=== PATIENT | female | born 1955 | race Caucasian/White ===

== ENCOUNTER 2023-01-03 10:22 | Emergency (ER) | payer MEDICARE, OTHER, MEDICAID, SELFPAY ==
[2023-01-03 10:35] VITALS: BP 139/82; PULSE 95; RESP 20; TEMP 36.1; O2SAT 96; BMI 24.4
--- NOTE | 2023-01-03 11:28 | ED_ITS ---
HPI - Abdominal Pain General Chief Complaint: Constipation Stated Complaint: Constipation Time Seen by Provider: 01/03/23 10:45 History of Present Illness HPI narrative: Patient is a 59-year-old woman in town visiting for her 's doctor's appointment. Patient has not had a bowel movement for 5-6 days. Patient has chronic constipation and her [id number] stool softeners are not helping. Patient really has no overt abdominal pain but does feel sense of fullness in her rectum. She has had no blood in her stool recently she has had no chest pain shortness a breath GERD symptoms nausea vomiting fever or chills. Patient often requires an enema for these type symptoms. Patient is not interested in further full workup but would just simply like an enema to help her relieve her bowels. Related Data Home Medications Medication Instructions Recorded Confirmed docusate sodium .ROUTE 01/03/23 oxycodone PO 01/03/23 rivaroxaban .ROUTE 01/03/23 sertraline .ROUTE 01/03/23 Allergies Allergy/AdvReac Type Severity Reaction Status Date / Time latex AdvReac Intermediate Rash Verified 01/03/23 10:35 [id number] Reductase AdvReac Intermediate Verified 01/03/23 10:35 Inhibitor Review of Systems Status of ROS Reports: 10 or more systems reviewed and unremarkable except as noted in History and below [facility] Medical History Constipation ?K59.00 - Constipation, unspecified (ICD-10) Social History Smoking Status: Former smoker Do you use any of these nicotine containing products: None Second hand tobacco smoke exposure: Yes How often do you have a drink containing alcohol: never How often do you have six or more drinks on one occasion: Never AUDIT-C Alcohol total score: 0 Non-prescribed substance use: former substance user service: No Exam Narrative: Exam Narrative: EXAM GENERAL: Patient appears comfortable and well. EYES: No scleral icterus. LYMPH: No supraclavicular or cervical lymphadenopathy. SKIN: Visible skin seen during exam normal or with benign process only. EXT: No dependent lower extremity pedal edema. HEART: Regular rate and rhythm with no murmurs, rubs, or gallops. LUNGS: Clear to auscultation bilaterally with no crackles or wheezes. ABD: Soft, non tender, non distended. PSYCH: Good eye contact, speech is not pressured. Const: Vital Signs, click to edit/add: Vital Signs - 24 hr 01/03/23 10:35 Temperature 97 F L Pulse Rate [Pulse Oximeter] 95 Respiratory Rate 20 Blood Pressure [Ri ght Upper Arm] 139/82 Pulse Oximetry 96 Oxygen Delivery Me thod Room Air Course Course Hospital Course: Patient seen examined. Did offer full evaluation patient would like to proceed with enema and see how she feels. Patient given pink lady enema. Exam vital signs and assessment are otherwise normal. Reevaluation(s) Reevaluation #1: Successful evacuation of the bowels after pain coulee enema. Time: 11:45 Vital Signs Vital signs: Initial Vital Signs Temperature 97 F L 01/03/23 10:35 Temperature Source Temporal Artery Scan 01/03/23 10:35 Pulse Rate 95 01/03/23 10:35 Respiratory Rate 20 01/03/23 10:35 Blood Pressure 139/82 01/03/23 10:35 Blood Pressure Mean 101 01/03/23 10:35 Blood Pressure Position Standing 01/03/23 10:35 Pulse Oximetry 96 01/03/23 10:35 Oxygen Delivery Method Room Air 01/03/23 10:35 Vital Signs Temperature 97 F L 01/03/23 10:35 Pulse Rate 95 01/03/23 10:35 Respiratory Rate 20 01/03/23 10:35 Blood Pressure 139/82 01/03/23 10:35 Pulse Oximetry 96 01/03/23 10:35 Oxygen Delivery Method Room Air 01/03/23 10:35 Temperature 97 F L 01/03/23 10:35 Pulse Rate 95 01/03/23 10:35 Respiratory Rate 20 01/03/23 10:35 Blood Pressure 139/82 01/03/23 10:35 Pulse Oximetry 96 01/03/23 10:35 Oxygen Delivery Method Room Air 01/03/23 10:35 MDM - Abdominal Pain MDM Narrative Medical decision making narrative: Patient is a 67-year-old woman who comes in with severe constipation with no other symptoms. She is requesting an enema which was provided. Patient had a large evacuation of her bowels and now feels well. She would like to go home without further evaluation. She will follow-up with her primary physician and will continue her [id number] stool softeners in the interim. Differential Diagnosis Differential diagnosis: Likely abdominal pain, acute appendicitis, constipation, diverticulitis, endometriosis, gastroenteritis, pancreatitis and small bowel obstruction Discharge Plan Discharge Clinical Impression: Constipation Patient Disposition: Home, Self-Care Condition: Improved Instructions: Constipation (ED) Additional Instructions: Continue home bowel regiment. Plenty of water. Activity as tolerated Follow-up with your doctor as needed. Activity Level: No Restrictions Discharge Diet: Regular Prescriptions: No Action sertraline .ROUTE rivaroxaban [Xarelto] .ROUTE oxycodone PO docusate sodium [Colace] .ROUTE Follow Up/Referrals: Provider,Not a Local [Primary Care Provider] - Stand Alone Forms: [employer] Info Instructions
--- NOTE | 2023-01-03 11:55 | ED.NURSE ---
was only able to hold 1/2 enema. was needing to have manual removal of stool from rectum as it was unable to pass. did eventually pass a large amt of stool soft. felt much better, was anxious to go home.
--- NOTE | 2023-01-03 12:03 | ED.NURSE ---
was only able to hold 1/2 enema. had large amt of stool after some manually removed. wanted to go home, felt much better.
== END 2023-01-03 11:55 | disposition home or self-care (01) ==
PROVIDERS: Emergency Provider Internal Medicine
DX: K59.00 Constipation, unspecified (principal)
CPT/HCPCS: 99283